=== PATIENT | male | born 1985 | race African-American/Black ===

== ENCOUNTER 2024-12-24 11:53 | Emergency (ER) | payer OTHER, SELFPAY ==
--- NOTE | ~2024-12-24 | XR_ITS ---
CHEST RADIOGRAPH, PA AND LATERAL CLINICAL HISTORY: chest pain . COMPARISON: 06/05/2017 TECHNIQUE: PA and lateral views of the chest. FINDINGS The cardiomediastinal silhouette is unremarkable. The lungs are clear. IMPRESSION: No focal infiltrate or effusion. Reviewed, dictated and finalized at location A.
--- NOTE | 2024-12-24 11:55 | ECG_ITS ---
Test Date: 2024-12-24 12:02:06 Measurements Intervals [place] Rate: 67 P: 79 RI: 177 QRS: 71 QRSD: 90 T: 40 QT: 362 QTc: 384 Interpretive Statements SINUS RHYTHM No previous ECG available for comparison Electronically Signed On 12-24-2024 14:10:26 CDT by Shane Rios M.D.
--- OUTSIDE RECORDS SUMMARY | 2024-12-24 11:55 | XMS_ITS | Clinical Summary ---
Author Organization [facility] Address [address] [place] [phone] Care Team Providers Care Electrical Design Technologist Name Role Phone No, Physician Primary Care Provider [phone] Allergies No known active allergies Medications dilTIAZem XR (dilTIAZem CD) 240 mg 24 hr capsule Take 240 mg by mouth daily Active aspirin 81 mg chewable tablet Take 81 mg by mouth daily Active Active Problems Problem Noted Date Diagnosed Date Precordial chest pain 11/29/2019 Assessment & Plan (11/29/2019 9:51 AM CDT): Chest pain elevated troponin-I during the PSVT .Will set up a Lexiscan stress test to look for myocardial ischemia. He will not be able to do a walking stress tests on account of his physique. Elevated troponin I level 11/29/2019 Assessment & Plan (11/29/2019 9:52 AM CDT): During the PSVT. Rate 210. Will set up a Lexiscan stress test to look for myocardial ischemia. Aggressive risk factor modification. Aspirin 81 mg p.o. daily . Cardiomyopathy, hypertrophic 11/29/2019 Assessment & Plan (11/29/2019 9:53 AM CDT): Cardizem CD. Morbid obesity 11/29/2019 Assessment & Plan (11/29/2019 9:53 AM CDT): He was encouraged to lose weight. 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 Gender Identity Not on file Sexual Orientation Not on file Obstetrics History Last Filed Vital Signs Vital Sign Reading Time Taken Comments Blood Pressure 128/80 11/29/2019 8:47 AM CDT Pulse 79 11/29/2019 8:47 AM CDT Temperature 36 C (96.8 F) 11/29/2019 8:47 AM CDT Respiratory Rate - - Oxygen Saturation 97% 11/29/2019 8:47 AM CDT Inhaled Oxygen Concentration - - Weight 92.5 kg (204 lb) 11/29/2019 8:47 AM CDT Height 167.6 cm (5' 6) 10/12/2019 2:10 PM CDT Body Mass Index 32.93 10/12/2019 2:10 PM CDT Plan of Treatment Not on file Insurance [employer] Care Teams Electrical Design Technologist Relationship Specialty Start Date End Date No, Physician PCP - General 06/05/17
--- OUTSIDE RECORDS SUMMARY | 2024-12-24 11:55 | XMS_ITS | Referral Summary ---
Author Organization [facility] Address [address] [place] [phone] Care Team Providers Care Baby Sitter Name Role Phone No, Physician Primary Care Provider [phone] Allergies No known active allergies Medications dilTIAZem [...] was encouraged to lose weight. 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 [place] [address] [address] [place] [phone] Care Teams Baby Sitter Relationship Specialty Start Date End Date No, Physician PCP - General 06/05/17
[2024-12-24 11:57] VITALS: BP 140/84; PULSE 67; RESP 20; TEMP 36.9; O2SAT 98
[2024-12-24 12:12] LABS: Hematocrit 40.2 % (42.0-52.0); Hemoglobin 13.2 g/dL (14.0-18.0); Immature Granulocyte Percent A 0.6 % (0-0.5); Lymphocytes Absolute Auto 0.87 K/mm3 (0.9-3.2); Mean Corpuscular HGB Conc 32.8 g/dl (32-36); Mean Corpuscular Hemoglobin 27.2 pg (26-34); Mean Corpuscular Volume 82.9 fl (80-100); Nucleated Red Blood Cells Absolute Auto 0.000 K/mm3 (0.0-0.012); Nucleated Red Blood Cells Perc 0.0 % (0.0-0.2); Platelet Count Result 192 k/mm3 (150-375); Red Blood Count 4.85 M/mm3 (4.6-6.20); White Blood Count 3.2 K/mm3 (4.5-10.0)
[2024-12-24 12:14] VITALS: O2SAT 100
[2024-12-24 12:15] VITALS: BP 131/78; PULSE 73; RESP 12; O2SAT 100
[2024-12-24 12:20] LABS: Alanine Aminotransferase 21 U/L (6-50); Albumin Level 4.3 g/dL (3.5-5.1); Alkaline Phosphatase 51 U/L (38-126); Anion Gap 9 mmol/L (4-12); Aspartate Amino Transferase 34 U/L (17-59); Bilirubin,Total 0.4 mg/dL (0.2-1.3); Blood Urea Nitrogen 12 mg/dL (9-20); Calcium 9.3 mg/dL (8.4-10.2); Carbon Dioxide 27 mmol/L (22-30); Chloride 104 mmol/L (98-107); Estimated CRCL calculation 87 ml/min; Estimated Glomerular Filt Rate > 60; Glucose 86 mg/dL (65-110); Lipase 156 U/L (23-300); Potassium 3.7 mmol/L (3.4-5.0); Sodium 140 mmol/L (137-145); Total Protein 7.6 g/dL (6.3-8.2)
[2024-12-24 12:24] LABS: INR 1.0; Partial Thromboplastin Time 26.3 Seconds (22.3-36.8); Prothrombin Time 13.2 Seconds (11.1-14.7)
[2024-12-24 12:32] LABS: Troponin I < 0.012 ng/mL (0.000-0.034)
--- OUTSIDE RECORDS SUMMARY | 2024-12-24 13:11 | XMS_ITS | Clinical Summary ---
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
--- OUTSIDE RECORDS SUMMARY | 2024-12-24 13:11 | XMS_ITS | Referral Summary ---
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 [address] [address] [place] [phone] Care Teams Travel Clerk Relationship Specialty Start Date End Date No, Physician PCP - General 06/05/17
--- NOTE | 2024-12-24 14:55 | ECG_ITS ---
Test Date: 2024-12-24 14:46:44 Measurements Intervals [place] Rate: 60 P: 85 GA: 185 QRS: 78 QRSD: 103 T: 62 QT: 381 QTc: 381 Interpretive Statements SINUS RHYTHM POSSIBLE LEFT ATRIAL ENLARGEMENT [-0.1mV P-WAVE IN V1/V2] Compared to ECG 12/24/2024 12:02:06 No significant changes Electronically Signed On 12-25-2024 13:37:32 CDT by Shane Rios M.D.
--- NOTE | 2024-12-24 15:01 | ED.GENADULT ---
HPI - General Adult General Chief complaint: Chest Pain Stated complaint: chest tightness Time Seen by Provider: 12/24/24 12:54 History of Present Illness HPI narrative: Patient is a 39-year-old gentleman presents emergency department with chief complaint of chest tightness that began this morning the patient states he had history of SVT in the past that had an ablation the patient states the pain is not radiating reports now the pain is mostly resolved the patient denies syncope reports that he did not get short of breath or diaphoretic Related Data Allergies Allergy/AdvReac Type Severity Reaction Status Date / Time No Known Allergies Allergy Unverified 09/11/18 21:19 Review of Systems Review of Systems: A 10 system review of systems was completed on the patient and is negative except for what is stated in the HPI. Nursing and ancillary documentation was reviewed. Exam Narrative: GENERAL: Well-appearing, well-nourished, and in no acute distress. HEAD: Normocephalic, atraumatic. EYES: PERRLA and EOMI. ENT: Nares clear, no rhinorrhea or epistaxis. Mucous membranes moist. NECK: Supple. CHEST: Clear to auscultation. No respiratory distress. HEART: Regular rate and rhythm. No murmur heard. Normal peripheral pulses. ABDOMEN: Soft, nontender, nondistended, normal active bowel sounds. EXTREMITIES: Normal range of motion. No edema. SKIN: Warm, dry, no rash. NEURO: No focal deficits. Alert and oriented x3. PSYCH: Normal mood and affect. Course Vital Signs Vital signs: Vital Signs Temperature 36.9 C 12/24/24 11:57 Pulse Rate 67 12/24/24 11:57 Respiratory Rate 20 12/24/24 11:57 Blood Pressure 140/84 12/24/24 11:57 Pulse Oximetry 98 12/24/24 11:57 Oxygen Delivery Room Air 12/24/24 11:57 Temperature 36.9 C 12/24/24 11:57 Pulse Rate 73 12/24/24 12:15 Respiratory Rate 12 12/24/24 12:15 Blood Pressure 131/78 12/24/24 12:15 Pulse Oximetry 100 12/24/24 12:15 Oxygen Delivery Room Air 12/24/24 12:14 Medical Decision Making [facility] Narrative Medical decision making narrative: Differential diagnosis includes ACS, dysrhythmia, electrolyte abnormality, pneumothorax, Chest x-ray showed no focal infiltrate and no evidence of pneumothorax EKG showed a heart rate of [address] elevation or ST depression Laboratory studies showed normal CBC CMP was within normal limits coags are within normal limits initial troponin was negative and repeat troponin was negative Vital Signs Vital Signs: Vital Signs Temperature 36.9 C 12/24/24 11:57 Pulse Rate 67 12/24/24 11:57 Respiratory Rate 20 12/24/24 11:57 Blood Pressure 140/84 12/24/24 11:57 Pulse Oximetry 98 12/24/24 11:57 Oxygen Delivery Room Air 12/24/24 11:57 Temperature 36.9 C 12/24/24 11:57 Pulse Rate 73 12/24/24 12:15 Respiratory Rate 12 12/24/24 12:15 Blood Pressure 131/78 12/24/24 12:15 Pulse Oximetry 100 12/24/24 12:15 Oxygen Delivery Room Air 12/24/24 12:14 Lab Data 12/24/24 12:06 12/24/24 12:06 Labs: Lab Results 12/24/24 12/24/24 Range/Units 12:06 14:43 WBC 3.2 L (4.5-10.0) K/mm3 RBC 4.85 (4.6-6.20) M/mm3 Hgb 13.2 L (14.0-18.0) g/dL Hct 40.2 L (42.0-52.0) % MCV 82.9 (80-100) fl MCH 27.2 (26-34) pg MCHC 32.8 (32-36) g/dl RDW 14.8 H (11.5-14.5) % Plt Count 192 (150-375) k/mm3 MPV 10.3 (7.4-10.4) fl Immature Gran % (Auto) 0.6 H (0-0.5) % Neut % (Auto) 62.0 (45.5-73.1) % Lymph % (Auto) 27.6 (18.3-44.2) % Grant % (Auto) 7.6 (2.6-8.5) % Eos % (Auto) 1.6 (0-4.4) % Baso % (Auto) 0.6 (0.2-1.2) % Lymph # (Auto) 0.87 L (0.9-3.2) K/mm3 Grant # (Auto) 0.2 (0.1-0.6) K/mm3 Eos # (Auto) 0.1 (0-0.3) K/mm3 Baso # (Auto) 0.0 (0.0-0.1) K/mm3 Abs Immat Gran (auto) 0.02 (0.00-0.031) K/mm3 Absolute Neuts (auto) 2.0 (1.3-6.7) K/mm3 Absolute Nucleated RBC 0.000 (0.0-0.012) K/mm3 Nucleated RBC % 0.0 (0.0-0.2) % PT 13.2 (11.1-14.7) Seconds INR 1.0 APTT 26.3 (22.3-36.8) Seconds Sodium 140 (137-145) mmol/L Potassium 3.7 (3.4-5.0) mmol/L Chloride 104 (98-107) mmol/L Carbon Dioxide 27 (22-30) mmol/L Anion Gap 9 (4-12) mmol/L BUN 12 (9-20) mg/dL Creatinine 0.82 (0.7-1.3) mg/dL Estim Creat Clear Calc 87 ml/min Estimated GFR > 60 (59 - ) Glucose 86 (65-110) mg/dL Calcium 9.3 (8.4-10.2) mg/dL Total Bilirubin 0.4 (0.2-1.3) mg/dL AST 34 (17-59) U/L ALT 21 (6-50) U/L Alkaline Phosphatase 51 (38-126) U/L Troponin I < 0.012 < 0.012 (0.000-0.034) ng/mL Total Protein 7.6 (6.3-8.2) g/dL Albumin 4.3 (3.5-5.1) g/dL Lipase 156 (23-300) U/L Discharge Plan Discharge Clinical Impression: Chest pain Patient Disposition: Home Condition: Stable Instructions: Antibiotic Form, Chest Pain (ED) Patient Language: Lithuanian Follow-up/Referrals: PHYSICIAN,TRANSITIONAL NURSE [Primary Care Provider] - Christiano Monk MD [Physician] - Time of Disposition: 15:02
[2024-12-24 15:09] LABS: Troponin I < 0.012 ng/mL (0.000-0.034)
== END 2024-12-24 15:16 | disposition home or self-care (01) ==
PROVIDERS: Emergency Provider Emergency Medicine
DX: R07.89 Other chest pain (principal); R94.31 Abnormal electrocardiogram [ECG] [EKG]
CPT/HCPCS: 36415; 71046; 80053; 83690; 84484; 85025; 85610; 85730; 93005; 99284

== ENCOUNTER 2025-01-17 19:18 | Emergency (ER) | payer OTHER, SELFPAY ==
[2025-01-17 19:25] VITALS: BP 116/72; PULSE 71; RESP 18; TEMP 36.8; O2SAT 98
--- NOTE | 2025-01-17 19:37 | ED_ITS ---
HPI - Skin/Abscess/Foreign Bdy General Chief complaint: Skin/Abscess/Foreign Body Stated complaint: Navel Infection Time Seen by Provider: 01/17/25 19:34 Source: patient and RN notes reviewed Mode of arrival: ambulatory Limitations: dementia History of Present Illness HPI narrative: 39-year-old male presents with concern for an infection in his umbilicus. He reports drainage, raw skin for about 3 weeks. Reports it is foul-smelling. He denies any firmness or overt tenderness. He denies fever or general malaise. MD complaint: other (Redness) Related Data Allergies Allergy/AdvReac Type Severity Reaction Status Date / Time No Known Allergies Allergy Verified 01/17/25 19:37 Review of Systems Review of Systems: CONSTITUTIONAL: Denies malaise, chills, sweats, or fever. EYES: Denies redness, or discharge. ENT: Denies rhinorrhea, congestion, swollen lips, swollen tongue CARDIOVASCULAR: Denies chest pain, palpitations, or edema. RESPIRATORY: Denies cough or dyspnea. GASTROINTESTINAL: Denies abdominal pain, nausea, vomiting SKIN: Reports drainage around skin in the umbilicus. Denies vesicles, bullae, numbness, pain beyond proportion MUSCULOSKELETAL: Denies joint pain or myalgia. NEUROLOGIC: Denies headache. All systems reviewed & are unremarkable except as noted in HPI and below PMFSH Comments At time of signature, agree with nursing past medical, surgical, social and family history. There is no relevant family history pertinent to the presenting complaint Exam Narrative: GENERAL: Well-appearing, well-nourished, and in no acute distress. HEAD: Normocephalic, atraumatic. EYES: PERRLA, conjunctivae clear ENT: Mucous membranes moist. NECK: Supple. No lymphadenopathy CHEST: Clear to auscultation. No respiratory distress. HEART: Regular rate and rhythm. SKIN: Warm, dry. Erythema, excoriated skin with drainage an umbilicus. No vesicles, bullae, necrosis, ecchymosis, crepitus noted. NEURO: Alert and oriented x3. PSYCH: Normal mood and affect Course Course Emergency Course: Patient is aware of diagnosis, understands and agrees to treatment plan. Anticipatory guidance given. Patient agrees to follow-up as directed and is aw are of reasons to seek care at the emergency department. Portions of this record may have been created with voice recognition software Level of Care: Express Care Visit Vital Signs Vital signs: Vital Signs Temperature 98.3 F 01/17/25 19:25 Pulse Rate 71 01/17/25 19:25 Respiratory Rate 18 01/17/25 19:25 Blood Pressure 116/72 01/17/25 19:25 Pulse Oximetry 98 01/17/25 19:25 Temperature 98.3 F 01/17/25 19:25 Pulse Rate 71 01/17/25 19:25 Respiratory Rate 18 01/17/25 19:25 Blood Pressure 116/72 01/17/25 19:25 Pulse Oximetry 98 01/17/25 19:25 Reviewed. MDM - Skin/Abscess/Foreign Bdy MDM Narrative Medical decision making narrative: I evaluated this in the express care. History is obtained from patient who is an independent historian and physical exam was performed.? Available medical records were reviewed. ? Exam findings and relevant testing show no acute concerns or changes; patient is non-toxic appearing and is in no distress. Does not appear at this time to be erythema multiforme, bullous, SJS, TEN; no evidence at this time to suggest RMSF, NSTI, endocarditis or Lyme disease; patient looks well, nontoxic and is tolerating oral intake; no neurologic signs or symptoms; no headache, photophobia or neck pain; afebrile.? Patient does not have history of of penetrating trauma, laceration, blunt trauma, recent surgery, immunosuppression, malignancy, obesity, alcoholism, corticosteroid use.? Discussed the importance of follow-up, patient agrees; question, cellulitis versus necrotizing soft tissue infection versus abscess.?? Patient is appropriate for outpatient treatment and follow-up. Critical Care Time Critical Care Time Critical Care Time: No Discharge Plan Discharge Clinical Impression: Umbilical discharge Patient Disposition: Home Condition: Stable Instructions: Antibiotic Form Additional Instructions: Please follow up with your Primary Care Doctor within 48-72 hours - call for an appointment. Clean the area well supple water, dry thoroughly and apply ointment as directed with Q-tip. Take Motrin 600mg every 8 hours with food for pain. Please take Antibiotics as directed. If you experience any worsening redness, swelling, streaking (red lines), fever or chills please go to the ER Patient Language: Malawian Prescriptions: New sulfamethoxazole-trimethoprim 800-160 mg tablet 1 tablet PO Q12H 7 Days Qty: 14 0RF mupirocin 2 % ointment 1 applic topical BID Qty: 22 0RF Follow-up/Referrals: PHYSICIAN,REPORTING PROCESS CONSULTANT [Primary Care Provider] - Time of Disposition: 19:44
== END 2025-01-17 19:45 | disposition home or self-care (01) ==
PROVIDERS: Emergency Provider Nurse Practitioner
DX: R19.8 Other specified symptoms and signs involving the digestive system and abdomen (principal)
CPT/HCPCS: 99213; G0463